=== PATIENT | female | born 1960 | race Two or more races ===

== ENCOUNTER 2017-10-20 07:32 | Outpatient (CLI) | payer OTHER | END 2017-10-20 17:00 | disposition home or self-care (01) | LOC: MAMO-SONO 07:32 | DX: Z12.31 Encounter for screening mammogram for malignant neoplasm of breast (principal); R10.2 Pelvic and perineal pain; N64.59 Other signs and symptoms in breast ==

== ENCOUNTER → 2020-03-08 | Outpatient (CLI) | payer OTHER | END | disposition home or self-care (01) | LOC: MRI 07:10 | PROVIDERS: ATTEND Radiology Diagnostic Radiology | DX: M71.551 Other bursitis, not elsewhere classified, right hip (principal) | CPT/HCPCS: 73721 ==

== ENCOUNTER 2021-10-23 07:46 | Outpatient (CLI) | payer OTHER | END 2021-10-23 07:54 | disposition home or self-care (01) | LOC: MAMO-SONO 07:46 | PROVIDERS: ATTEND Obstetrics & Gynecology | DX: N63.0 Unspecified lump in unspecified breast (principal); N64.4 Mastodynia; R10.2 Pelvic and perineal pain; R10.30 Lower abdominal pain, unspecified ==

== ENCOUNTER 2023-11-21 08:25 | Outpatient (CLI) | payer OTHER | END 2023-11-21 08:30 | disposition home or self-care (01) | LOC: MAMO-SONO 08:25 | PROVIDERS: ATTEND Radiology Diagnostic Radiology | DX: Z12.31 Encounter for screening mammogram for malignant neoplasm of breast (principal); E03.9 Hypothyroidism, unspecified ==

== ENCOUNTER 2024-08-02 07:56 | Outpatient (CLI) | payer OTHER | END 2024-08-02 07:58 | disposition home or self-care (01) | LOC: NUCLEAR 07:56 | PROVIDERS: ATTEND Obstetrics & Gynecology | DX: M81.0 Age-related osteoporosis without current pathological fracture (principal) ==